=== PATIENT | male | born 1990 | race Caucasian/White ===

== ENCOUNTER 2019-05-16 06:31 | Emergency (ER) | payer BC | END 2019-05-16 07:50 | disposition home or self-care (01) | LOC: ER 06:31 ==

== ENCOUNTER 2020-03-08 20:06 | Inpatient (IN) | payer BC ==
[~2020-03-08] VITALS: Ht 177.8 cm; Wt 82.0 kg
[~2020-03-08 20:06] MED LIST: CYCL10TA9 PO; MELO15TA14 PO; NAPR-243 PO; TRM50T PO
[2020-03-08] MEDS ORDERED: LACTATED RINGERS 1,000 ML IV SCH (21:15)
--- NOTE | 2020-03-08 21:15 | ED General ---
General Stated Complaint: EXTREME MUSCLE SORENESS BOTH ARMS,FATIGUE Source of Information: Patient Exam Limitations: No Limitations History of Present Illness Date Seen by Provider: March 08, 2020 Time Seen by Provider: 21:13 Initial Comments To ER with mild nausea, mild diarrhea, general body aches but worse in both of his upper arms. He not sure if he is fighting a virus or if he has rhabdomyolysis as he did a pretty significant upper body workout 2 days ago. A lot of water, his urine is normal in color. No fevers chills no shortness of breath no cough no rhinorrhea no headache. Timing/Duration: 1-2 Days Severity: Moderate Associated Systoms: Nausea/Vomiting Allergies and Home Medications Allergies Coded Allergies: Meperidine HCl (Verified Adverse Reaction, Intermediate, HALLUCINATIONS, 01/05/12) Home Medications Cyclobenzaprine HCl 10 Mg Tablet, 10 MG PO Q8H Prescribed by: LYNNETTE FERREIRA on 05/16/19705 Meloxicam 15 Mg Tablet, 15 MG PO DAILY Prescribed by: LYNNETTE FERREIRA on 05/16/19705 Naproxen 500 Mg Tablet, 1 EACH PO TID PRN FOR PAIN Prescribed by: LYNNETTE FERREIRA on 01/05/122323 Tramadol Hcl 50 Mg Tab, 50 MG PO Q4-6HOURS PRN FOR PAIN Prescribed by: LYNNETTE FERREIRA on 01/05/122323 Patient Home Medication List Home Medication List Reviewed: Yes Review of Systems Review of Systems Constitutional: see HPI EENTM: see HPI Respiratory: no symptoms reported Cardiovascular: no symptoms reported Genitourinary: no symptoms reported Musculoskeletal: see HPI, muscle pain Skin: no symptoms reported Psychiatric/Neurological: No Symptoms Reported Hematologic/Lymphatic: No Symptoms Reported Past Nrjafky-Fekzvk-Tuonzc Hx Patient Social History Recent Foreign Travel: No Contact w/Someone Who Travel: No Recent Hopitalizations: No Immunizations Up To Date Date of Influenza Vaccine: Aug 13, 2011 Seasonal Allergies Seasonal Allergies: No Past Medical History Surgeries: Yes (LEFT TIB-FIB FX/ORIF) Orthopedic Respiratory: No Cardiac: No Neurological: No Genitourinary: No Gastrointestinal: No Musculoskeletal: Yes (LEFT TIB-FIB FX/ORIF) Fractures Endocrine: No HEENT: No Cancer: No Psychosocial: No Integumentary: No Blood Disorders: No Physical Exam Vital Signs Vital Signs - First Documented 03/08/20 20:35 Temp 36.2 Pulse 73 Resp 16 B/P (MAP) 122/79 (93) Pulse Ox 98 O2 Delivery Room Air Capillary Refill : Height, Weight, BMI Height: 5'10" Weight: 165lbs. oz. 74.126422gl; 23.39 BMI Method:Stated General Appearance: No Apparent Distress, WD/WN Eyes: Bilateral Eye Normal Inspection, Bilateral Eye PERRL, Bilateral Eye EOMI Respiratory: No Accessory Muscle Use, No Respiratory Distress Cardiovascular: Regular Rate, Rhythm, Normal Peripheral Pulses Gastrointestinal: Normal Bowel Sounds, Non Tender, Soft Extremity: Normal Capillary Refill, Normal Inspection, Other (biceps are a little tight, not terrible. No concern for compartment syndrome. Flex and extend his arms. He does have a little bit more pain when he extends his arms. This pain is located in the biceps.) Neurologic/Psychiatric: Alert, Oriented x3 Progress/Results/Core Measures Suspected Sepsis SIRS Temperature: Pulse: Respiratory Rate: Laboratory Tests 03/08/20 21:10: White Blood Count 8.8 Blood Pressure / Mean: Laboratory Tests 03/08/20 21:10: Creatinine 1.18, Platelet Count 245, Total Bilirubin 0.8 Results/Orders Lab Results Laboratory Tests Test 03/08/20 21:10 03/08/20 21:15 Range/Units White Blood Count 8.8 4.3-11.0 10^3/uL Red Blood Count 5.18 4.35-5.85 10^6/uL Hemoglobin 15.9 13.3-17.7 G/DL Hematocrit 45 40-54 % Mean Corpuscular Volume 86 80-99 FL Mean Corpuscular Hemoglobin 31 25-34 PG Mean Corpuscular Hemoglobin Concent 36 32-36 G/DL Red Cell Distribution Width 12.6 10.0-14.5 % Platelet Count 245 130-400 10^3/uL Mean Platelet Volume 8.8 7.4-10.4 FL Neutrophils (%) (Auto) 61 42-75 % Lymphocytes (%) (Auto) 28 12-44 % Monocytes (%) (Auto) 10 0-12 % Eosinophils (%) (Auto) 0 0-10 % Basophils (%) (Auto) 0 0-10 % Neutrophils # (Auto) 5.4 1.8-7.8 X 10^3 Lymphocytes # (Auto) 2.5 1.0-4.0 X 10^3 Monocytes # (Auto) 0.9 0.0-1.0 X 10^3 Eosinophils # (Auto) 0.0 0.0-0.3 10^3/uL Basophils # (Auto) 0.0 0.0-0.1 10^3/uL Sodium Level 141 135-145 MMOL/L Potassium Level 3.7 3.6-5.0 MMOL/L Chloride Level 105 98-107 MMOL/L Carbon Dioxide Level 25 21-32 MMOL/L Anion Gap 11 5-14 MMOL/L Blood Urea Nitrogen 8 7-18 MG/DL Creatinine 1.18 0.60-1.30 MG/DL Estimat Glomerular Filtration Rate > 60 BUN/Creatinine Ratio 7 Glucose Level 96 70-105 MG/DL Calcium Level 9.4 8.5-10.1 MG/DL Corrected Calcium 9.0 8.5-10.1 MG/DL Total Bilirubin 0.8 0.1-1.0 MG/DL Aspartate Amino Transf (AST/SGOT) 288 H 5-34 U/L Alanine Aminotransferase (ALT/SGPT) 92 H 0-55 U/L Alkaline Phosphatase 78 40-136 U/L C-Reactive Protein High Sensitivity 0.04 0.00-0.50 MG/DL Total Protein 7.7 6.4-8.2 GM/DL Albumin 4.5 3.2-4.5 GM/DL My Orders Orders - VIELKA JACKSON GRINDER SET UP OPERATOR GEAR TOOL Cbc With Automated Diff (03/08/20 21:08) Creatine Kinase (03/08/20 21:08) Myoglobin Urine (03/08/20 21:08) Ua Culture If Indicated (03/08/20 21:08) Comprehensive Metabolic Panel (03/08/20 21:08) Ed Iv/Invasive Line Start (03/08/20 21:08) Hs C Reactive Protein (03/08/20 21:08) Lactated Ringers (Lr 1000 Ml Iv Solution (03/08/20 21:15) Myoglobin Serum (03/08/20 21:31) Drug Screen Stat (Urine) (03/08/20 21:50) Vital Signs/I&O 03/08/20 20:35 Temp 36.2 Pulse 73 Resp 16 B/P (MAP) 122/79 (93) Pulse Ox 98 O2 Delivery Room Air Capillary Refill : Departure Communication (Admissions) Time/Spoke to Admitting Phy: 21:53 Impression Primary Impression: Rhabdomyolysis Qualified Codes: M62.82 - Rhabdomyolysis Disposition: 01 HOME, SELF-CARE Condition: Stable Admissions Decision to Admit Reason: Admit from ER (General) Decision to Admit/Date: March 08, 2020 Time/Decision to Admit Time: 21:53 Departure-Patient Inst. Referrals: NO,LOCAL PHYSICIAN (PCP/Family) Primary Care Physician VIELKA JACKSON APRN March 08, 2020 21:14
[2020-03-08 21:19] LABS: BASOPHILS % (AUTO) 0 % (0-10); EOSINOPHILS % (AUTO) 0 % (0-10); HEMATOCRIT 45 % (40-54); HEMOGLOBIN 15.9 G/DL (13.3-17.7); LYMPHOCYTES # (AUTO) 2.5 X 10^3 (1.0-4.0); LYMPHOCYTES % (AUTO) 28 % (12-44); MEAN CORPUSCULAR HEMOGLOBIN 31 PG (25-34); MEAN CORPUSCULAR HGB CONC 36 G/DL (32-36); MEAN CORPUSCULAR VOLUME 86 FL (80-99); MEAN PLATELET VOLUME 8.8 FL (7.4-10.4); MONOCYTES # (AUTO) 0.9 X 10^3 (0.0-1.0); MONOCYTES % (AUTO) 10 % (0-12); NEUTROPHILS # (AUTO) 5.4 X 10^3 (1.8-7.8); NEUTROPHILS % (AUTO) 61 % (42-75); PLATELET COUNT 245 10^3/uL (130-400); RED CELL DISTRIBUTION WIDTH 12.6 % (10.0-14.5); WHITE BLOOD COUNT 8.8 10^3/uL (4.3-11.0)
[2020-03-08 21:21] LABS: BILIRUBIN,URINE NEGATIVE (NEGATIVE); CLARITY,URINE CLEAR; COLOR,URINE YELLOW; GLUCOSE, URINE (UA) NEGATIVE (NEGATIVE); KETONES,URINE NEGATIVE (NEGATIVE); LEUKOCYTE ESTERASE ,URINE NEGATIVE (NEGATIVE); NITRITE,URINE NEGATIVE (NEGATIVE); PH,URINE 7.5 (5-9); PROTEIN,URINE NEGATIVE (NEGATIVE)
[2020-03-08 21:37] LABS: ALANINE AMINOTRANSFERASE 92 U/L (0-55); ALBUMIN 4.5 GM/DL (3.2-4.5); ALKALINE PHOSPHATASE 78 U/L (40-136); BILIRUBIN,TOTAL 0.8 MG/DL (0.1-1.0); BUN/CREATININE RATIO 7; CALCIUM 9.4 MG/DL (8.5-10.1); CARBON DIOXIDE 25 MMOL/L (21-32); CHLORIDE 105 MMOL/L (98-107); CREATININE SERUM 1.18 MG/DL (0.60-1.30); GFR ESTIMATED > 60; GLUCOSE 96 MG/DL (70-105); POTASSIUM 3.7 MMOL/L (3.6-5.0); SODIUM 141 MMOL/L (135-145); TOTAL PROTEIN 7.7 GM/DL (6.4-8.2)
[2020-03-08 22:00] LABS: CREATINE KINASE 16284 U/L (30-200)
[2020-03-08 22:15] LABS: BACTERIA,URINE NEGATIVE /HPF
--- NOTE | 2020-03-08 22:22 | NUR ---
ESTHER TAVAREZ admitted to room 418-1, with an admitting diagnosis of Rhabdomylysis, on 03/08/20 from ED via , accompanied by STAFF.ESTHER TAVAREZ introduced to surroundings, call light, bed controls, phone, TV, temperature control, lights, meal times, smoking policy, visitor policy, side rail policy, bathrooms and showers. Patient Rights given to patient in the handbook.ESTHER TAVAREZ verbalizes understanding that [facility] is not responsible for the loss or damage to any personal effects or valuables that are kept in the patients posession during their hospitalization. The following Patient Care Plans were discussed with the PATIENT: Discharge Planning and Rhabdomylysis. ESTHER TAVAREZ verbalizes understanding of Interdisciplinary Patient Education. Patient and/or family were informed about the Rapid Response Team and its purpose.
--- OUTSIDE RECORDS SUMMARY | 2020-03-08 22:26 | XMS REPORT | Continuity of Care Document ---
Author Organization Unknown Address Unknown Phone Unavailable Allergies Active Description Code Type Severity Reaction Onset Reported/Identified Relationship to Patient Clinical Status Yes meperidine HCl [id number] Dr pack Allergy Moderate HALLUCINATIONS 01/05/2012 Medications There is no data. Problems Date Dx Coded Attending Type Code Diagnosis Diagnosed By 05/16/2019 LYNNETTE FERREIRA DO Ot R06.89 OTHER ABNORMALITIES OF BREATHING 05/16/2019 LYNNETTE FERREIRA DO Ot R07.89 OTHER CHEST PAIN 05/16/2019 LYNNETTE FERREIRA DO Ot Z88.5 ALLERGY STATUS TO NARCOTIC AGENT STATUS 05/19/2019 LYNNETTE FERREIRA DO Ot R06.89 OTHER ABNORMALITIES OF BREATHING 05/19/2019 LYNNETTE FERREIRA DO Ot R07.89 OTHER CHEST PAIN 05/19/2019 CARLOS FERREIRA DOA True Ot Z88.5 ALLERGY STATUS TO NARCOTIC AGENT STATUS Procedures There is no data. Results There is no data. Encounters ACCT No. Visit Date/Time Discharge Status Pt. Type Provider Facility Loc./Unit Complaint [id number] 05/16/2019 06:31:00 019 07:50:00 DIS Emergency LYNNETTE FERREIRA DO [facility] ER TROUBLE BREATHING, SORE NESS
[2020-03-08 22:27] VITALS: BP 143/73
[2020-03-08 22:44] LABS: AMPHETAMINE SCREEN, URINE NEGATIVE (NEGATIVE); BARBITURATE SCREEN URINE NEGATIVE (NEGATIVE); BENZODIAZEPINES SCREEN URINE NEGATIVE (NEGATIVE); CANNABINOID SCREEN, URINE NEGATIVE (NEGATIVE); COCAINE SCREEN URINE NEGATIVE (NEGATIVE); METHADONE STAT NEGATIVE (NEGATIVE); METHAMPHETAMINE SCREEN URINE S NEGATIVE (NEGATIVE); OPIATE SCREEN URINE NEGATIVE (NEGATIVE); OXYCODONE STAT NEGATIVE (NEGATIVE); PROPOXYPHENE STAT NEGATIVE (NEGATIVE); TRICYCLIC ANTIDEPRESSANTS SCRE NEGATIVE (NEGATIVE)
[2020-03-08] MEDS ORDERED: KETOROLAC 15 MG/ML VIAL IV PRN (22:45)
[2020-03-08] MEDS ORDERED: ONDANSETRON 4 MG/2 ML (SDV) Z0FRAN IV PRN (22:45)
[2020-03-08] MEDS ORDERED: HYDROcodone/APAP 5 MG/325 MG (LORTAB) TAB PO PRN (22:45)
[2020-03-08] MEDS: LACTATED RINGERS 1,000 ML IV SCH (23:25)
[2020-03-09] VITALS: BP 135/85
--- OUTSIDE RECORDS SUMMARY | 2020-03-09 | XMS REPORT | Continuity of Care Document ---
Author Organization Unknown Address Unknown Phone Unavailable Allergies Active Description Code Type Severity Reaction Onset Reported/Identified Relationship to Patient Clinical Status Yes meperidine HCl [id number] Dr pack Allergy Moderate HALLUCINATIONS 01/05/2012 Medications [...] Status Pt. Type Provider Facility Loc./Unit Complaint [id number] 05/16/2019 06:31:00 019 07:50:00 DIS Emergency LYNNETTE FERREIRA DO [facility] a [facility] ER TROUBLE BREATHING, SORE NESS
[2020-03-09] MEDS: LACTATED RINGERS 1,000 ML IV SCH ×6 (03:40→20:33)
[2020-03-09 04:00] VITALS: BP 135/85
[2020-03-09 06:06] LABS: BASOPHILS % (AUTO) 0 % (0-10); EOSINOPHILS # (AUTO) 0.1 10^3/uL (0.0-0.3); EOSINOPHILS % (AUTO) 1 % (0-10); HEMATOCRIT 43 % (40-54); HEMOGLOBIN 14.7 G/DL (13.3-17.7); LYMPHOCYTES # (AUTO) 1.9 X 10^3 (1.0-4.0); LYMPHOCYTES % (AUTO) 30 % (12-44); MEAN CORPUSCULAR HEMOGLOBIN 30 PG (25-34); MEAN CORPUSCULAR HGB CONC 34 G/DL (32-36); MEAN CORPUSCULAR VOLUME 88 FL (80-99); MEAN PLATELET VOLUME 8.7 FL (7.4-10.4); MONOCYTES # (AUTO) 0.8 X 10^3 (0.0-1.0); MONOCYTES % (AUTO) 12 % (0-12); NEUTROPHILS # (AUTO) 3.6 X 10^3 (1.8-7.8); NEUTROPHILS % (AUTO) 56 % (42-75); PLATELET COUNT 212 10^3/uL (130-400); RED CELL DISTRIBUTION WIDTH 12.8 % (10.0-14.5); WHITE BLOOD COUNT 6.4 10^3/uL (4.3-11.0)
[2020-03-09 06:32] LABS: ALANINE AMINOTRANSFERASE 88 U/L (0-55); ALBUMIN 3.9 GM/DL (3.2-4.5); ALKALINE PHOSPHATASE 68 U/L (40-136); BUN/CREATININE RATIO 7; CALCIUM 8.9 MG/DL (8.5-10.1); CARBON DIOXIDE 26 MMOL/L (21-32); CHLORIDE 106 MMOL/L (98-107); CREATININE SERUM 1.08 MG/DL (0.60-1.30); GFR ESTIMATED > 60; GLUCOSE 102 MG/DL (70-105); POTASSIUM 3.9 MMOL/L (3.6-5.0); SODIUM 141 MMOL/L (135-145); TOTAL PROTEIN 6.5 GM/DL (6.4-8.2)
[2020-03-09 07:30] VITALS: BP 118/75
[2020-03-09 07:49] LABS: CREATINE KINASE 12368 U/L (30-200)
[2020-03-09] MEDS ORDERED: LORA10TA76 PO (10:48)
[2020-03-09] MEDS ORDERED: NAPH15DR62 OP/OT (10:48)
--- NOTE | 2020-03-09 10:57 | NUR ---
SPOKE WITH THE PT TO COMPLETE THE MED REC PT DENIES TAKING ANY PRESCRIPTION MEDICATION OTC MEDS: CLARITIN AND ALLERGY EYE DROPS PRN
[2020-03-09 12:33] VITALS: BP 117/74
--- NOTE | 2020-03-09 12:39 | History & Physical-Hospitalist ---
History of Present Illness HPI/Chief Complaint Richard Bullard is a 29-year-old male with no known past medical history who presented with bilateral arm pain. He reports that he did the "Iker" challenge a couple days ago. His arms had been very painful since that time. He works out doing CrossFit. He denies any fevers or chills. He denies any chest pain or shortness of breath. He denies any cough. He denies any abdominal pain, nausea, or vomiting. He does report some diarrhea. He has no other complaints or concerns. He is a nonsmoker. He is an occasional drinker. Source: patient Exam Limitations: no limitations Date Seen 03/09/20 Time Seen by a Provider: 09:20 Attending Physician Sandy Menjivar DO PCP No,Local Physician Referring Physician Date of Admission March 08, 2020 at 21:52 Home Medications & Allergies Home Medications Reviewed patient Home Medication Reconciliation performed by pharmacy medication reconciliations registered pharmacy technician and/or nursing. Patients Allergies have been reviewed. Allergies Allergies Coded Allergies meperidine HCl (Verified Adverse Reaction, Intermediate, HALLUCINATIONS, 01/05/12) Past Sbovwfu-Ihnjuv-Ophufd Hx Past Med/Social Hx: Reviewed Nursing Past Med/Soc Hx Patient Social History Alcohol Use: Occasionally Uses Recreational Drug Use: No Smoking Status: Never a Smoker 2nd Hand Smoke Exposure: No Recent Foreign Travel: No Contact w/other who traveled: No Recent Hopitalizations: No Recent Infectious Disease Expo: No Immunizations Up To Date Date of Influenza Vaccine: Aug 13, 2011 Seasonal Allergies Seasonal Allergies: No Past Medical History Surgeries: Orthopedic Musculoskeletal: Fractures History of Blood Disorders: No Review of Systems Constitutional: no symptoms reported EENTM: no symptoms reported Respiratory: no symptoms reported Cardiovascular: no symptoms reported Gastrointestinal: no symptoms reported Genitourinary: no symptoms reported Musculoskeletal: muscle pain Skin: no symptoms reported Psychiatric/Neurological: No Symptoms Reported Physical Exam Physical Exam Vital Signs Vital Signs - First Documented 03/08/20 20:35 Temp 36.2 Pulse 73 Resp 16 B/P (MAP) 122/79 (93) Pulse Ox 98 O2 Delivery Room Air Capillary Refill : Less Than 3 Seconds Height, Weight, BMI Height: 5'10" Weight: 165lbs. oz. 74.632199oa; 25.93 BMI Method:Stated General Appearance: No Apparent Distress, WD/WN HEENT: PERRL/EOMI, Pharynx Normal Neck: Normal Inspection, Supple Respiratory: Lungs Clear, Normal Breath Sounds, No Respiratory Distress Cardiovascular: Regular Rate, Rhythm, No Edema, No Murmur Gastrointestinal: Normal Bowel Sounds, Non Tender, Soft Extremity: Normal Inspection, Other (tenderness bilateral arms with decreased range of motion at the elbows) Neurologic/Psychiatric: Alert, Oriented x3, No Motor/Sensory Deficits, Normal Mood/Affect Skin: Normal Color, Warm/Dry Results Results/Procedures Labs Laboratory Tests 03/08/20 21:10 03/09/20 05:45 Patient resulted labs reviewed. Imaging: Reviewed Imaging Report Assessment/Plan Admission Diagnosis Rhabdomyolysis Admission Status: Inpatient Order (span 2 midnights) Reason for Inpatient Admission: rhabdomyolysis requiring further monitoring and treatment Assessment and Plan Rhabdomyolysis Overexertion from lifting with repetitive movement Elevated LFTs CK 16,000 on arrival, down to 12,000 this morning creatinine 1.08, stable AST elevated mid 200s, stable Repeat hematocrit function panel and creatine kinase tomorrow morning IV fluids ordered, continue DVT prophylaxis: Ambulation Diagnosis/Problems Diagnosis/Problems (1) Rhabdomyolysis Status: Acute Qualifiers: Rhabdomyolysis type: non-traumatic Qualified Codes: M62.82 - Rhabdomyolysis (2) Overexertion from lifting with repetitive movement Status: Acute Qualifiers: Encounter type: initial encounter Qualified Codes: X50.0XXA - Overexertion from strenuous movement or load, initial encounter Clinical Quality Measures DVT/VTE Risk/Contraindication: RFS Level Per Nursing on Admit: 0=No Risk/No VTE PPX DANIEL SALCIDO MD March 09, 2020 12:39
[2020-03-09 15:39] VITALS: BP 138/86
[2020-03-09 19:41] VITALS: BP 141/86
[2020-03-10] MEDS: LACTATED RINGERS 1,000 ML IV SCH ×6 (00:33→21:49)
[2020-03-10 00:44] VITALS: BP 140/84
[2020-03-10 05:37] LABS: ALBUMIN 3.7 GM/DL (3.2-4.5)
[2020-03-10 05:38] LABS: CHLORIDE 107 MMOL/L (98-107); POTASSIUM 3.9 MMOL/L (3.6-5.0); SODIUM 141 MMOL/L (135-145)
[2020-03-10 05:39] LABS: CALCIUM 8.7 MG/DL (8.5-10.1)
[2020-03-10 05:40] LABS: GLUCOSE 94 MG/DL (70-105); TOTAL PROTEIN 6.1 GM/DL (6.4-8.2)
[2020-03-10 05:41] LABS: CARBON DIOXIDE 26 MMOL/L (21-32)
[2020-03-10 05:42] LABS: BILIRUBIN,TOTAL 0.8 MG/DL (0.1-1.0)
[2020-03-10 05:43] LABS: ALKALINE PHOSPHATASE 60 U/L (40-136)
[2020-03-10 05:44] LABS: CREATININE SERUM 0.99 MG/DL (0.60-1.30); GFR ESTIMATED > 60
[2020-03-10 05:45] LABS: BUN/CREATININE RATIO 11
[2020-03-10 05:46] LABS: ALANINE AMINOTRANSFERASE 111 U/L (0-55)
[2020-03-10 06:10] LABS: CREATINE KINASE 13258 U/L (30-200)
[2020-03-10 07:47] VITALS: BP 121/77
--- NOTE | 2020-03-10 10:34 | Progress Note - Hospitalist ---
Subjective HPI/CC On Admission Date Seen by Provider: March 10, 2020 Time Seen by Provider: 09:55 Richard Bullard is a 29-year-old male with no known past medical history who presented with bilateral arm pain. He reports that he did the "Iker" challenge a couple days ago. His arms had been very painful since that time. He works out doing CrossFit. He denies any fevers or chills. He denies any chest pain or shortness of breath. He denies any cough. He denies any abdominal pain, nausea, or vomiting. He does report some diarrhea. He has no other complaints or concerns. He is a nonsmoker. He is an occasional drinker. Subjective/Events-last exam He is feeling better today. He has better range of motion in his arms. His pain is better. He is been urinating frequently. He denies any fevers or c hills. He denies any chest pain or shortness of breath. He denies any abdominal pain, nausea, or vomiting. He has no other complaints or concerns. Objective Exam Vital Signs Vital Signs Date Time Temp Pulse Resp B/P (MAP) Pulse Ox O2 Delivery O2 Flow Rate FiO2 03/10/20 08:49 Room Air 03/10/20 07:47 36.6 72 16 121/77 (92) 96 Capillary Refill : Less Than 3 Seconds General Appearance: No Apparent Distress, WD/WN Respiratory: Lungs Clear, Normal Breath Sounds, No Respiratory Distress Cardiovascular: Regular Rate, Rhythm, No Edema, No Murmur Gastrointestinal: Normal Bowel Sounds, Non Tender, Soft Extremity: Normal Inspection, No Pedal Edema, Other (Biceps tender bilaterally) Neurologic/Psychiatric: Alert, Oriented x3, No Motor/Sensory Deficits, Normal Mood/Affect Skin: Normal Color, Warm/Dry Results/Procedures Lab Laboratory Tests 03/10/20 05:07 Patient resulted labs reviewed. Imaging: Reviewed Imaging Report Assessment/Plan Assessment and Plan Assess & Plan/Chief Complaint Rhabdomyolysis Overexertion from lifting with repetitive movement Elevated LFTs CK trended up slightly today Creatinine 0.99, stable AST/ALT trending up slightly Repeat hepatic function panel and creatine kinase tomorrow morning Continue IV fluids DVT prophylaxis: Ambulation Diagnosis/Problems Diagnosis/Problems (1) Rhabdomyolysis Status: Acute Qualifiers: Rhabdomyolysis type: non-traumatic Qualified Codes: M62.82 - Rhabdomyolysis (2) Overexertion from lifting with repetitive movement Status: Acute Qualifiers: Encounter type: initial encounter Qualified Codes: X50.0XXA - Overexertion from strenuous movement or load, initial encounter Clinical Quality Measures DVT/VTE Risk/Contraindication: RFS Level Per Nursing on Admit: 0=No Risk/No VTE PPX DANIEL SALCIDO MD March 10, 2020 10:34
--- NOTE | 2020-03-10 14:00 | NUR ---
RECEIVED REPORT FROM WADE DOLAN AND TOOK OVER CARE OF PT.
[2020-03-10 16:25] VITALS: BP 128/75
[2020-03-10 23:32] VITALS: BP 113/88
[2020-03-11] MEDS: LACTATED RINGERS 1,000 ML IV SCH ×2 (01:54→05:53)
[2020-03-11 07:00] LABS: ALBUMIN 3.9 GM/DL (3.2-4.5); CHLORIDE 107 MMOL/L (98-107)
[2020-03-11 07:01] LABS: POTASSIUM 3.8 MMOL/L (3.6-5.0); SODIUM 141 MMOL/L (135-145)
[2020-03-11 07:03] LABS: GLUCOSE 93 MG/DL (70-105); TOTAL PROTEIN 6.4 GM/DL (6.4-8.2)
[2020-03-11 07:04] LABS: CARBON DIOXIDE 27 MMOL/L (21-32)
[2020-03-11 07:05] LABS: BILIRUBIN,TOTAL 0.9 MG/DL (0.1-1.0)
[2020-03-11 07:06] LABS: ALKALINE PHOSPHATASE 67 U/L (40-136)
[2020-03-11 07:07] LABS: BUN/CREATININE RATIO 10; CREATININE SERUM 1.01 MG/DL (0.60-1.30); GFR ESTIMATED > 60
[2020-03-11 07:09] LABS: ALANINE AMINOTRANSFERASE 125 U/L (0-55)
[2020-03-11 07:27] LABS: CREATINE KINASE 10373 U/L (30-200)
[2020-03-11 08:00] VITALS: BP 107/67
--- NOTE | 2020-03-11 09:49 | Discharge Summary ---
Discharge Summary Hospital Course Was the Problem List Reviewed?: Yes Problems/Dx: (1) Rhabdomyolysis Status: Acute Qualifiers: Qualified Codes: M62.82 - Rhabdomyolysis (2) Overexertion from lifting with repetitive movement Status: Acute Qualifiers: Qualified Codes: X50.0XXA - Overexertion from strenuous movement or load, initial encounter Hospital Course Date of Admission: March 08, 2020 at 21:52 Admission Diagnosis : rhabdomyolysis Family Physician/Provider: No,Local Physician Date of Discharge: 03/11/20 Discharge Diagnosis: rhabdomyolysis Hospital Course: Richard Bullard is a 29-year-old male with no known past medical history who presented with bilateral arm pain and was admitted with rhabdomyolysis. He had done a strenuous workout on called the "Iker". Following that he had severe arm pain and he was concerned that he might have rhabdomyolysis. Upon arrival, his creatine kinase was elevated at 13,000. He was started on IV fluids and his levels began to trend down. His creatinine remained stable at 1. His creatine kinase was 10,000 on discharge. Studies have shown that creatine kinase levels between 5000-53214 are associated with low likelihood for development of pigment nephropathy. He was recommended to avoid strenuous acti vities for the next week. He should establish with a primary care physician. Labs and Pending Lab Test: Laboratory Tests 03/11/20 06:36: Sodium Level 141, Potassium Level 3.8, Chloride Level 107, Carbon Dioxide Level 27, Anion Gap 7, Blood Urea Nitrogen 10, Creatinine 1.01, Estimat Glomerular Filtration Rate > 60, BUN/Creatinine Ratio 10, Glucose Level 93, Calcium Level 9.0, Corrected Calcium 9.1, Total Bilirubin 0.9, Aspartate Amino Transf (AST/SGOT) 278H, Alanine Aminotransferase (ALT/SGPT) 125H, Alkaline Phosphatase 67, Total Creatine Kinase 12142M, Total Protein 6.4, Albumin 3.9 Home Meds Active Reported Allergy Eye Drops (Naphazoline HCl/Pheniramine) 15 Ml Drops 2 Drops OP/OT PRN PRN Claritin (Loratadine) 10 Mg Tablet 10 Mg PO DAILY PRN Assessment/Pt Instructions take medications as prescribed. Your okay to return to work. Avoid strenuous activities for the next week, including but not limited to weightlifting. He should establish care with a primary care physician. Discharge Planning: <30 minutes discharge planning Discharge Instructions Discharge Diet: No Restrictions Activity as Tolerated: No (avoid strenuous activities for the next week, do not lift more than 25 pounds) Discharge Physical Examination Vital Signs Vital Signs Date Time Temp Pulse Resp B/P (MAP) Pulse Ox O2 Delivery O2 Flow Rate FiO2 03/11/20 08:00 36.7 55 18 107/67 (80) 97 Room Air General Appearance: No Apparent Distress, WD/WN Respiratory: Lungs Clear, Normal Breath Sounds, No Respiratory Distress Cardiovascular: Regular Rate, Rhythm, No Edema, No Murmur Gastrointestinal: Normal Bowel Sounds, Non Tender, Soft Extremity: Normal Inspection, Normal Range of Motion, Non Tender, No Pedal Edema Skin: Normal Color, Warm/Dry Neurologic/Psychiatric: Alert, Oriented x3, No Motor/Sensory Deficits, Normal Mood/Affect Allergies: Coded Allergies: meperidine HCl (Verified Adverse Reaction, Intermediate, HALLUCINATIONS, 01/05/12) Discharge Summary Date of Admission March 08, 2020 at 21:52 Date of Discharge Discharge Date: March 11, 2020 Discharge Time: 1000 Admission Diagnosis Rhabdomyolysis Discharge Diagnosis Rhabdomyolysis, Overexertion from lifting with repetitive movement (1) Rhabdomyolysis Status: Acute Qualifiers: Qualified Codes: M62.82 - Rhabdomyolysis (2) Overexertion from lifting with repetitive movement Status: Acute Qualifiers: Qualified Codes: X50.0XXA - Overexertion from strenuous movement or load, initial encounter (3) Elevated LFTs Status: Acute Clinical Quality Measures DVT/VTE Risk/Contraindication: RFS Level Per Nursing on Admit: 0=No Risk/No VTE PPX DANIEL SALCIDO MD March 11, 2020 09:47
[2020-03-11 10:00] VITALS: BP 107/67
== END 2020-03-11 10:00 | disposition home or self-care (01) | DRG 558 ==
LOC: EDUNIT# 20:06 → ER 20:08 → 4TH 21:52
PROVIDERS: ADMIT Internal Medicine; ATTEND Internal Medicine
DX: M62.82 Rhabdomyolysis (principal); T73.3XXA Exhaustion due to excessive exertion, initial encounter; R11.2 Nausea with vomiting, unspecified; R19.7 Diarrhea, unspecified; R74.8 Abnormal levels of other serum enzymes; X50.3XXA Overexertion from repetitive movements, initial encounter; Y93.B9 Activity, other involving muscle strengthening exercises
CPT/HCPCS: 36415; 80053; 80306; 81000; 82550; 83874; 85025; 86141; 96360

== ENCOUNTER 2020-05-31 08:00 | Outpatient (RCR) | payer BC ==
[~2020-05-31 08:00] MED LIST changes: +LORA10TA76 PO; +NAPH15DR62 OP/OT
== END 2020-08-29 | disposition home or self-care (01) ==
LOC: CARD 08:00
PROVIDERS: ATTEND Nurse Practitioner Family
DX: R00.2 Palpitations (principal)
CPT/HCPCS: 93225; 93226

== ENCOUNTER → 2020-07-07 | Outpatient (CLI) | payer BC | LOC: LABNPT 05:44 | PROVIDERS: ATTEND Student in an Organized Health Care Education/Training Program | DX: Z11.59 Encounter for screening for other viral diseases (principal); Z20.828 Contact with and (suspected) exposure to other viral communicable diseases ==

== ENCOUNTER → 2020-07-12 | Outpatient (CLI) | payer BC | LOC: LABNPT 08:18 | PROVIDERS: ATTEND Student in an Organized Health Care Education/Training Program | DX: Z11.59 Encounter for screening for other viral diseases (principal); Z20.828 Contact with and (suspected) exposure to other viral communicable diseases | CPT/HCPCS: 87635 ==